=== PATIENT | female | born 1990 ===

== ENCOUNTER 2017-12-25 19:37 | Emergency (ER) | payer BC ==
[2017-12-25 19:47] VITALS: BP 113/80; PULSE 89; RESP 16; TEMP 99.6; O2SAT 97
--- NOTE | 2017-12-25 20:03 | ED PDOC ---
HPI: Female Pain Time Seen by Provider: 12/25/17 19:47 Chief Complaint (Nursing): Female Genitourinary Chief Complaint (Provider): Dysuria History Per: Patient History/Exam Limitations: no limitations Onset/Duration Of Symptoms: Hrs (today) Current Symptoms Are (Timing): Still Present Associated Symptoms: Urinary Symptoms (urgency and dysuria). denies: Fever, Chills Additional Complaint(s): Jennifer Carreon is a 27 year old female, with no significant past medical history, who presents to the emergency department complaining of dysuria and urgency onset since this morning. Patient states she's been with the same partner for x2 years and hasn't been using protection. She denies any vaginal discharge, fever, chills or other medical complaints. PMD: None provided. Past Medical History Reviewed: Historical Data, Nursing Documentation, Vital Signs Vital Signs: Last Vital Signs Temp 99.6 F 12/25/17 19:44 Pulse 89 12/25/17 19:44 Resp 16 12/25/17 19:44 BP 113/80 12/25/17 19:44 Pulse Ox 97 12/25/17 19:44 - Medical History PMH: No Chronic Diseases - Surgical History Surgical History: No Surg Hx - Family History Family History: States: No Known Family Hx - Home Medications Home Medications: Ambulatory Orders Medication Instructions Recorded Ciprofloxacin [Cipro] 500 mg PO BID #10 tab 12/25/17 - Allergies Allergies/Adverse Reactions: Allergies Allergy/AdvReac Type Severity Reaction Status Date / Time No Known Allergies Allergy Verified 12/25/17 19:47 Review of Systems ROS Statement: Except As Marked, All Systems Reviewed And Found Negative Constitutional: Negative for: Fever, Chills Genitourinary Female: Positive for: Dysuria, Other (urgency). Negative for: Vaginal Discharge Physical Exam - Reviewed Nursing Documentation Reviewed: Yes Vital Signs Reviewed: Yes - Physical Exam Appears: Positive for: Non-toxic, No Acute Distress Head Exam: Positive for: ATRAUMATIC, NORMOCEPHALIC Skin: Positive for: Normal Color, Warm, Dry Eye Exam: Positive for: Normal appearance Neck: Positive for: Painless ROM Cardiovascular/Chest: Positive for: Regular Rate, Rhythm. Negative for: Murmur Respiratory: Positive for: Normal Breath Sounds. Negative for: Respiratory Distress Back: Negative for: L CVA Tenderness, R CVA Tenderness, Vertebral Tenderness Extremity: Positive for: Normal ROM (upper and lower extremities). Negative for : Deformity, Swelling Neurologic/Psych: Positive for: Alert, Oriented. Negative for: Motor/Sensory Deficits - ECG O2 Sat by Pulse Oximetry: 97 (RA) Pulse Ox Interpretation: Normal Medical Decision Making Medical Decision Making: Time: 19:47 Initial Impression: UTI Initial Plan: --Urine dipstick --Urine (+) leuks Scribe Attestation: Documented by Niraj Viera, acting as a scribe for Letitia La PA-C Provider Scribe Attestation: All medical record entries made by the Scribe were at my direction and personally dictated by me. I have reviewed the chart and agree that the record accurately reflects my personal performance of the history, physical exam, medical decision making, and the department course for this patient. I have also personally directed, reviewed, and agree with the discharge instructions and disposition. Disposition - Clinical Impression Clinical Impression: Urinary tract infection - Patient ED Disposition Is Patient to be Admitted: No Counseled Patient/Family Regarding: Diagnosis, Need For Followup, Rx Given - Disposition Disposition: Routine/Home Disposition Time: 20:22 Condition: STABLE Prescriptions: Ciprofloxacin [Cipro] 500 mg PO BID #10 tab Instructions: Urinary Tract Infections in Adults Forms: [employer] ([place])
== END 2017-12-25 20:41 | disposition home or self-care (01) ==
LOC: H.ER 19:37
DX: N39.0 Urinary tract infection, site not specified (principal)

== ENCOUNTER 2018-01-03 14:13 | Emergency (ER) | payer SELFPAY ==
[2018-01-03 14:21] VITALS: PULSE 72; RESP 18; O2SAT 99
[2018-01-03] MEDS ORDERED: Sodium Chloride 0.9% 1,000 ML IV STA (14:23)
[2018-01-03] MEDS ORDERED: Famotidine 20mg/50ml 20 MG in Premixed IV 50 EA IVPB STA (14:23)
--- NOTE | 2018-01-03 14:41 | ED PDOC ---
HPI: Psych/Substance Abuse Time Seen by Provider: 01/03/18 14:20 Chief Complaint (Nursing): Psychiatric Evaluation Chief Complaint (Provider): Psychiatric Evaluation History Per: Patient, EMS History/Exam Limitations: no limitations Onset/Duration Of Symptoms: Hrs (x3) Current Symptoms Are (Timing): Still Present Associated Symptoms: denies: Suicidal Thoughts Additional Complaint(s): Jennifer Careron is a 27 year old female with no significant past medical history , who was brought to the ED by EMS for psychiatric evaluation, s/p patient ingesting 3 Percocet tablets around 11 am this morning. Patient states that her boyfriend broke up with her and she was stressed and needed to relax. She reports that after taking the tablets she realized she could be harming herself. Patient reports vomiting 2 times before arrival to the ED and states she feels dizzy and has mild epigastric pain. She denies any homicidal or suicidal ideation. PMD: none provided Past Medical History Reviewed: Historical Data, Nursing Documentation, Vital Signs Vital Signs: Last Vital Signs Temp 98.4 F 01/03/18 14:16 Pulse 72 01/03/18 14:16 Resp 18 01/03/18 14:16 BP 118/72 01/03/18 14:16 Pulse Ox 99 01/03/18 14:16 - Medical History PMH: No Chronic Diseases - Surgical History Surgical History: No Surg Hx - Family History Family History: States: Unknown Family Hx - Social History Ex-Smoker (has not smoked in the last 12 months): No Alcohol: None - Immunization History Hx Tetanus Toxoid Vaccination: No Hx Influenza Vaccination: No Hx Pneumococcal Vaccination: No - Home Medications Home Medications: Ambulatory Orders Medication Instructions Recorded Ciprofloxacin [Cipro] 500 mg PO BID #10 tab 12/25/17 Metronidazole [Metrogel-Vaginal] 1 ea VG QPM #5 gel 12/25/17 Famotidine [Pepcid] 20 mg PO BID #6 tab 01/03/18 Ondansetron ODT [Zofran ODT] 4 mg PO Q8 PRN #2 odt 01/03/18 - Allergies Allergies/Adverse Reactions: Allergies Allergy/AdvReac Type Severity Reaction Status Date / Time No Known Allergies Allergy Verified 12/25/17 19:47 Review of Systems ROS Statement: Except As Marked, All Systems Reviewed And Found Negative Gastrointestinal: Positive for: Vomiting, Abdominal Pain (epigastric pain) Neurological: Positive for: Dizziness Psych: Negative for: Suicidal ideation, Other (homicidal ideation) Physical Exam - Reviewed Nursing Documentation Reviewed: Yes Vital Signs Reviewed: Yes - Physical Exam Appears: Positive for: Non-toxic, No Acute Distress Head Exam: Positive for: ATRAUMATIC, NORMAL INSPECTION, NORMOCEPHALIC Skin: Positive for: Normal Color, Warm, DRY ENT: Positive for: Normal ENT Inspection Neck: Positive for: Normal, Painless ROM Cardiovascular/Chest: Positive for: Regular Rate, Rhythm. Negative for: Murmur Respiratory: Positive for: Normal Breath Sounds. Negative for: Respiratory Distress Gastrointestinal/Abdominal: Positive for: Soft, Tenderness (mild epigastric) Extremity: Positive for: Normal ROM. Negative for: Deformity, Swelling Neurologic/Psych: Positive for: Alert, Oriented. Negative for: Motor/Sensory Deficits - Laboratory Results Result Diagrams: 01/03/18 15:09 01/03/18 15:09 - ECG O2 Sat by Pulse Oximetry: 99 (RA) Pulse Ox Interpretation: Normal - Progress ED Course And Treament: PEPCID 20 MG IV X 1 DOSE ZOFRAN 4MG ODT NS 1 LITER WIDE OPEN SEEN BY CRISIS CLEARED BY DR. AGUIRRE ADJUSTMENT DISORDER Medical Decision Making Medical Decision Making: Time: 14:22 Plan: --EKG --Acetaminophen --Alcohol serum --CMP --Drug Screen --Salicylate --ED Urine --CBC --IV FLuids --Pepcid 20 mg IVPB --Zofran 4 mg IVP --Zofran 4 mg PO --1:1 Obeservation --Urinalysis Scribe Attestation: Documented by Michela Goins, acting as a scribe for Martir Roblero PA-C. Provider Scribe Attestation: All medical record entries made by the Scribe were at my direction and personally dictated by me. I have reviewed the chart and agree that the record accurately reflects my personal performance of the history, physical exam, medical decision making, and the department course for this patient. I have also personally directed, reviewed, and agree with the discharge instructions and disposition. Disposition - Clinical Impression Clinical Impression: Hypokalemia, Medication side effects, Adjustment disorder - Patient ED Disposition Is Patient to be Admitted: No - Disposition Disposition: Routine/Home Disposition Time: 16:08 Condition: FAIR Prescriptions: Famotidine [Pepcid] 20 mg PO BID #6 tab Ondansetron ODT [Zofran ODT] 4 mg PO Q8 PRN #2 odt PRN Reason: Nausea/Vomiting Instructions: Hypokalemia (DC), Adjustment Disorder Forms: [facility] ([place])
[2018-01-03 15:17] LABS: BASO % 0.2 % (0.0-2.0); EOS % 0.1 % (0.0-4.0); HEMOGLOBIN 13.4 g/dL (12.0-16.0); LYMPH # 0.9 K/uL (1.0-4.3); LYMPH % 7.2 % (20.0-40.0); MEAN CELL VOLUME 91.6 fl (81.0-99.0); MEAN CORPUSCULAR HEMOGLOBIN 30.2 pg (27.0-31.0); MEAN PLATELET VOLUME 7.9 fl (7.2-11.7); MONO # 0.6 K/uL (0.0-0.8); MONO % 4.8 % (0.0-10.0); NEUT % 87.7 % (50.0-75.0); PLATELET COUNT 237 K/uL (130-400); RBC 4.42 Mil/uL (3.80-5.20); RED CELL DISTRIBUTION WIDTH 13.5 % (11.5-14.5); WHITE BLOOD COUNT 12.5 K/uL (4.8-10.8)
[2018-01-03 15:28] LABS: ACETAMINOPHEN < 10.0 ug/ml (10.0-30.0); ALB/GLOB RATIO 1.1 (1.0-2.1); ALBUMIN 4.1 g/dL (3.5-5.0); ALT/SGPT 27 U/L (9-52); AST/SGOT 21 U/L (14-36); BLOOD UREA NITROGEN 15 mg/dl (7-17); CALCIUM 8.9 mg/dL (8.4-10.2); GFR AFRICAN-AMERICAN > 60; GFR NON-AFRICAN AMERICAN > 60; SALICYLATE < 1.0 mg/dl
[2018-01-03] MEDS ORDERED: Potassium Chloride 20 mEq ER Tab PO ONE ×2 (16:03→16:21)
[2018-01-03] MEDS ORDERED: Famotidine 20mg/50ml 20 MG/50 ML BAG IVPB ONE (16:21)
[2018-01-03 16:41] LABS: LYMPHOCYTE 8 % (20-50); MONOCYTE 4 % (0-10); NEUTROPHIL 88 % (42-75); PLATELET ESTIMATE NORMAL (NORMAL); TOTAL CELLS COUNTED 100
[2018-01-03 16:56] LABS: SQUAMOUS EPITHIAL 16 /hpf (0-5); URINE BACTERIA OCC (<OCC); URINE BILIRUBIN NEGATIVE (NEGATIVE); URINE BLOOD NEGATIVE (NEGATIVE); URINE CLARITY CLOUDY (Clear); URINE COLOR YELLOW (YELLOW); URINE GLUCOSE (UA) NEG (Normal); URINE LEUKOCYTE ESTERASE LARGE Leu/uL (Negative); URINE PROTEIN 30 mg/dL (NEGATIVE); URINE UROBILINOGEN 0.2-1.0 mg/dL (0.2-1.0)
[2018-01-03 17:05] LABS: BARBITURATES, UR NEGATIVE (NEGATIVE); BENZODIAZEPINES, UR NEGATIVE (NEGATIVE); OPIATES, UR POSITIVE (NEGATIVE); PHENCYCLIDINE, UR NEGATIVE (NEGATIVE)
[2018-01-03 17:50] VITALS: BP 128/78; TEMP 98
--- NOTE | 2018-01-05 11:33 | CARD ---
APPROVED REPORT EKG Measurement Heart [id number] <Conclusion> Normal sinus rhythm Normal ECG
== END 2018-01-03 16:30 | disposition home or self-care (01) ==
LOC: H.ER 14:13
DX: F43.20 Adjustment disorder, unspecified (principal); E87.6 Hypokalemia
CPT/HCPCS: 80053; 81003; 84702; 85025; 93005; 99283; G0480; J7030